=== PATIENT | male | born 1995 | race African-American/Black ===

== ENCOUNTER 2023-06-04 05:51 | Emergency (ER) | payer OTHER ==
[~2023-06-04] VITALS: Ht 152.4 cm; Wt 72.6 kg
[2023-06-04 07:04] LABS: PLATELET COUNT 243 K/uL (142-355)
== END 2023-06-04 08:45 | disposition home or self-care (01) ==
LOC: ED 05:51
PROVIDERS: Family Medicine
DX: R10.84 Generalized abdominal pain (principal); K29.70 Gastritis, unspecified, without bleeding; R10.13 Epigastric pain; E86.0 Dehydration
CPT/HCPCS: 80053; 81002; 82150; 83690; 85027; 99283